=== PATIENT | female | born 1980 | race Caucasian/White ===

== ENCOUNTER → 2016-07-25 | Outpatient (CLI) | payer OTHER ==
[2016-07-25 15:43] LABS: CH 31.6; CHCM 34.1; HDW 2.66; HGB 11.9 gm/dL (11.4-16.0); MCH 31.6 pg (25.0-35.0); Mean Platelet Volume 7.8; RBC 3.77 m/uL (3.80-5.40); RDW 13.1 % (11.5-15.5); WBC 10.6 k/uL (3.8-10.6)
[2016-07-25 15:47] LABS: Glucose 76 mg/dL (74-99); Non-African American GFR(MDRD) >60 (>60 ml/min/1.73 sqM)
[2016-07-25 16:18] LABS: Hepatitis B Surface Ag Index 0.06
[2016-07-26 04:40] LABS: Toxoplasma Antibody (IgG) <3.0 IU/mL (<7.2)
[2016-07-26 07:36] LABS: HIV-1/HIV-2 Ab Screen NONREAC (NON REAC)
== END | disposition home or self-care (01) ==
LOC: LABWHC1 14:36
PROVIDERS: ATTEND Obstetrics & Gynecology
DX: Z34.82 Encounter for supervision of other normal pregnancy, second trimester (principal); Z3A.00 Weeks of gestation of pregnancy not specified
CPT/HCPCS: 36415; 82565; 82947; 85027; 86762; 86777; 86778; 86780; 86850; 86900; 86901; 87340; 87389

== ENCOUNTER 2016-08-16 18:53 | Outpatient (CLI) | payer OTHER ==
[2016-08-16 19:36] LABS: Appearance,Urine Cloudy (Clear); Bacteria,Urine Rare /hpf; Bilirubin,Urine Negative (Negative); Glucose,Urine (UA) Negative (Negative); Ketones,Urine 1+ (Negative); Leukocyte Esterase,Urine Negative (Negative); Mucus,Urine Rare /hpf; Nitrite,Urine Negative (Negative); Particle Count 4667; Protein,Urine Negative (Negative); RBC,Urine <1 /hpf (0-5); Specific Gravity,Urine 1.009 (1.001-1.035); Squamous Epithelial Cell,Urine 5 /hpf (0-4); UA Billing (MACRO vs. MICRO) MICRO; Urobilinogen,Urine <2.0 mg/dL (<2.0); WBC,Urine 1 /hpf (0-5)
== END 2016-08-16 19:50 | disposition home or self-care (01) ==
LOC: FBPOP 18:53
PROVIDERS: ATTEND Obstetrics & Gynecology
DX: O99.89 Other specified diseases and conditions complicating pregnancy, childbirth and the puerperium (principal); M54.9 Dorsalgia, unspecified; Z3A.24 24 weeks gestation of pregnancy
CPT/HCPCS: 81001; G0463; 99213

== ENCOUNTER 2016-11-05 12:14 | Inpatient (IN) | payer OTHER ==
[2016-11-05] MEDS: LACTATED RINGERS 1,000 ML IV SCH ×2 (13:30→23:06)
[2016-11-05] MEDS ORDERED: CITRIC ACID-SODIUM CITRATE 15 ML CUP PO ONE (14:17)
[2016-11-05] MEDS ORDERED: ceFAZolin 2 GM in SODIUM CHLORIDE 0.9% 100 ML IVPB ONE (14:17)
--- NOTE | 2016-11-05 14:21 | P.HPOB ---
History of Present Illness H&P Date: 11/05/16 Chief Complaint: Interim at 35 weeks with nonreactive NST and BPP 2 out of 8 This is a 36-year-old at 35 weeks gestation was seen in the office at approximately 12 clocks afternoon. heart rate was in the low 150s and in discussing with her she relates that she had decreasing movement over the last 2 days. During that time she did not call our office or try and get advice on what to do as she knew she had an appointment today. She also reports that over the last few days she's had a small amount of leaking that she was concerned maybe she had broken her water but again she did not call the office or come into labor and delivery. She was sent over for nonstress test and evaluation for rupture membranes. An Essure was negative however the NST was nonreactive with a baseline of 150 with about 5 deep variation between 1 4153. I was notified of nonreactive NST at approximately 1:15 and at that time ordered a biophysical profile. Biophysical profile was done amniotic fluid index was adequate however there was minimal to no movement in the baby during the entire process. I did do a acoustic stimulation with the ultrasound on the baby and there was some movement of the baby during that but otherwise we do not see any movement. At this point we have called for an urgent section as she has no IV access we are trying to get IV access and it moved forward to getting to the delivery as quickly as possible. Vital signs are stable and afebrile. Heart regular, lungs clear, extremities without pain. Pelvic exam reveals her to be closed. Assessment intrauterine at 35 weeks with nonreactive NST and low biophysical profile. Planned repeat low transverse section Past Medical History History of Any Multi-Drug Resistant Organisms: None Reported Smoking Status: Current every day smoker Medications and Allergies Home Medications Medication Instructions Recorded Confirmed Type Pnv with Ca,No.72/Iron/FA 1 tab PO DAILY 11/05/16 11/05/16 History [ Plus Tablet] Allergies Allergy/AdvReac Type Severity Reaction Status Date / Time No Known Allergies Allergy Verified 11/05/16 12:26 Exam Osteopathic Statement: *. No significant issues noted on an osteopathic structural exam other than those noted in the History and Physical/Consult. - Vital Signs Vital signs: Intake and Output 11/04/16 11/05/16 11/05/16 22:59 06:59 14:59 Other: Weight 79.832 kg Patient Weight 11/06/16 06:59 Weight 79.832 kg
[2016-11-05] MEDS ORDERED: OXYTOCIN 10 UNIT/ML 1 ML VIAL ONE (14:28)
[2016-11-05] MEDS ORDERED: SUCCINYLCHOLINE CHLORIDE 100 MG/5 ML SYR IV ONE (14:28)
[2016-11-05] MEDS ORDERED: ONDANSETRON 4 MG/2 ML VIAL ONE (14:28)
[2016-11-05] MEDS ORDERED: HYDROmorphone (PF) 1 MG/ML ONE (14:28)
[2016-11-05] MEDS ORDERED: ACETAMINOPHEN IV (For NPO) 1,000 MG/100 ML VIAL ONE (14:28)
[2016-11-05] MEDS ORDERED: fentaNYL (PF) 50 MCG/ML 2 ML AMP ONE (14:28)
[2016-11-05] MEDS ORDERED: KETOROLAC 30 MG/ML 1 ML VIAL ONE (14:28)
[2016-11-05] MEDS ORDERED: PROPOFOL 10 MG/ML 20 ML VIAL IV ONE (14:28)
[2016-11-05] MEDS ORDERED: LIDOCAINE 1% INJ 10MG/ML (20 ML MDV) ONE (14:28)
[2016-11-05 14:36] LABS: Basophils % (A) 0 %; CH 31.7; CHCM 33.9; Eosinophils # (A) 0.2 k/uL (0-0.7); Eosinophils % (A) 2 %; HCT 33.3 % (34.0-46.0); HDW 2.92; Luc # (Auto) 0.17; Luc % (Auto) 2; Lymphocytes # (A) 1.7 k/uL (1.0-4.8); Lymphocytes % (A) 15 %; MCH 31.1 pg (25.0-35.0); MCV 94.2 fL (80.0-100.0); Mean Platelet Volume 9.7; Monocytes # (A) 0.6 k/uL (0-1.0); Monocytes % (A) 5 %; Neutrophils # (A) 8.8 k/uL (1.3-7.7); Neutrophils % (A) 76 %; RBC 3.53 m/uL (3.80-5.40); RDW 13.4 % (11.5-15.5); WBC 11.5 k/uL (3.8-10.6); WBC (Perox) 11.83
--- NOTE | 2016-11-05 14:56 | US ---
EXAMINATION TYPE: US OB BPP wo non-stress DATE OF EXAM: 11/05/2016 2:09 PM COMPARISON: NONE CLINICAL HISTORY: non reactive heart tones. EXAM PERFORMED: Biophysical profile by ultrasound BPP PARAMETERS: PRESENTATION: vertex LIE: Long?? HEART RATE: 147bpm RHYTHM: Normal JUSTYN: 16.5 BPP SCORIN. Breathin (1 episode of breathing of 30 second duration in 30 minutes of scanning time) 2. Movement: 0 (at least 2 discrete body movements in 30 minutes) 3. Tone: 0 (1 episode of active flexion/extension of limb) 4. JUSTYN: 16.5 (JUSTYN index > 5cm) TOTAL SCORE: 2 / 8 Dr Desai present during beginning of exam, and came in at end. He said we could stop the scan and t hat he was going to deliver the baby. IMPRESSIONS: 1. Biophysical profile scoring 2 out of 8 points.
--- NOTE | 2016-11-05 15:25 | P.OP ---
Date of Procedure: 11/05/16 Preoperative Diagnosis: IUP 35 weeks nonreactive NST with biophysical profile 2 out of 8 with family planning Postoperative Diagnosis: Same Procedure(s) Performed: Repeat low transverse section with bilateral partial salpingectomy Implants: Anesthesia: JEFFRYA Surgeon: Boom Desai Head And Neck Surgeon #1: Raysa Norris Estimated Blood Loss (ml): 800 IV fluids (ml): 900 Urine output (ml): 100 Pathology: other (Placenta) Condition: stable Disposition: floor Indications for Procedure: Operative Findings: Viable male scores of 7 at 1-5 and 8 at 10 minutes with a weight of 6 pounds Description of Procedure: Patient was taken to the operating suite and placed under a general anesthetic due to above factors. A Pfannenstiel skin incision was made and this incision was then carried through to the underlying layer of the fascia was second knife. Fascia was then nicked in the midline and this opening was extended laterally with Israel scissors. Superior and inferior aspect of this incision were then grasped tented up and bluntly and sharply dissected off the rectus muscles. Rectus muscles were then divided in the midline and sharp dissection through the peritoneum was made. This opening was then extended superiorly and inferiorly with good visualization of both bowel bladder. Bladder blade was then placed and vesicouterine peritoneum was identified. It was entered sharply with Metzenbaum scissors and this opening was extended across the face of the uterus and bladder flap was digitally created. Knife was then used to incise uterus and this incision was then extended bluntly. Clear fluid is noted time of artificial rupture membranes. Head was then H medically delivered and mouth nares bulb suctioned. Interim posterior shoulders were easily delivered with gentle downward upper traction with fundal pressure. Umbilical cord was allowed to pulsate some blood back towards the baby as nursery personnel was giving initial care and the umbilical cord was rapidly clamped and cut and the baby was taken to special care nursery. Placenta was then delivered intact Pitocin was added to the IV. Uterus was then exteriorized cleared of clots and debris and closed with one layer of 0 Vicryl suture. Once excellent hemostasis was felt to be obtained 3-0 Vicryl was used to reapproximate the bladder flap. Once accomplished first the right tube than left tube had a hemostat placed 2-3 cm from uterine cornu and a window was created in the mesosalpinx bilaterally. 2 proximal to distal 2-0 silk sutures were then placed and intervening segments excised and tips were cauterized. Once accomplished blood and debris was suctioned from the posterior cul-de-sac. Uterus was then reinserted into the abdomen and peritoneal layer was closed with 0 Vicryl suture. Fascial layer was closed with 0 Vicryl suture. 3-0 Vicryl was then used to reapproximate skin and close space and the skin was then closed with 3-0 Vicryl and a Torres needle. Should be noted that we did discuss tubal ligation versus non-tubal ligation. Discussion was that if the baby seemed to be okay at time of delivery that we would go in and do a tubal ligation if the baby was flaccid or potentially looked critical to the special care nursery personnel would plan not to tie her tubes. 1 minute score for baby was 7 and the baby was taken special care nursery were the remaining scores were obtained.
[2016-11-05] MEDS ORDERED: HYDROmorphone PCA 5 MG/25 ML SYRINGE IV PRN (15:31)
[2016-11-05] MEDS ORDERED: NALOXONE 0.4 MG/ML 1 ML VIAL IV PRN (15:31)
[2016-11-05] MEDS: ONDANSETRON 4 MG/2 ML VIAL IVP PRN ×2 (16:37→22:15)
[2016-11-05 17:13] VITALS: BMI 25.9
[2016-11-05] MEDS: KETOROLAC 30 MG/ML 1 ML VIAL IVP SCH (22:15)
[2016-11-06] MEDS: KETOROLAC 30 MG/ML 1 ML VIAL IVP SCH ×3 (04:49→20:46)
[2016-11-06] MEDS ORDERED: Acetaminophen-Codeine 300-30mg TAB PO PRN (08:54)
--- NOTE | 2016-11-06 08:56 | P.PNOBGPC ---
Subjective - Subjective Principal diagnosis: pod 1 Interval history: overall doing well. v/s stable and afebrile. all questions answered. will plan d /c [employer]. advance diet. heart reg, lung ctab, abd soft, inc intact. ext without pain. pod #1 cont care Patient reports: Reports appetite normal, Reports voiding normally, Reports pain well controlled, Reports ambulating normally [place]: in NICU Objective - Vital Signs Latest vital signs: Vital Signs Temp Pulse Resp BP Pulse Ox 11/06/16 04:00 98.3 F 61 16 108/66 100 11/05/16 23:26 97.6 F 55 L 16 113/68 100 11/05/16 20:00 95.4 F L 56 L 16 115/55 100 11/05/16 17:14 61 16 107/60 11/05/16 16:44 66 16 118/62 99 11/05/16 16:14 57 L 16 124/60 99 11/05/16 16:00 61 16 121/67 99 11/05/16 15:59 61 16 126/63 99 11/05/16 15:44 65 16 127/60 99 11/05/16 15:31 99 11/05/16 15:29 97.3 F L 74 16 126/60 99 11/05/16 15:14 97.2 F L 74 16 126/60 100 Intake and Output 11/05/16 11/06/16 11/06/16 22:59 06:59 14:59 Output Total 650 800 Balance -650 -800 Output: Urine 650 800 Uretheral ([place]) 200 Other: Voiding Method Indwelling Catheter # Voids 1 Weight 79.832 kg - Labs Labs: Abnormal Lab Results - Last 24 Hours (Table) 11/05/16 11/05/16 Range/Units 14:15 14:41 WBC 11.5 H (3.8-10.6) k/uL RBC 3.53 L (3.80-5.40) m/uL Hgb 11.0 L (11.4-16.0) gm/dL Hct 33.3 L (34.0-46.0) % Neutrophils # 8.8 H (1.3-7.7) k/uL Urine Opiates Screen Detected H (NotDetected) U Marijuana (THC) Screen Detected H (NotDetected)
[2016-11-06] MEDS: Acetaminophen-Codeine 300-30mg TAB PO PRN ×2 (09:19→19:42)
[2016-11-06] MEDS ORDERED: MEASLES-MUMPS-RUBELLA VACC/PF 12,500 UNIT/0.5 ML VIAL SQ ONE (16:57)
[2016-11-06] MEDS ORDERED: DIPH,PERTUS(ACELL)TETVAC-LF 0.5 ML VIAL IM ONE (16:57)
[2016-11-06] MEDS: IBUPROFEN 600 MG TAB PO PRN ×2 (17:49→23:27)
[2016-11-06] MEDS: SENNOSIDES-DOCUSATE SODIUM 1 EACH TAB PO SCH (19:43)
[2016-11-06] MEDS: LACTATED RINGERS 1,000 ML IV SCH ×7 (20:40→20:46)
[2016-11-07] MEDS: Acetaminophen-Codeine 300-30mg TAB PO PRN (05:58)
[2016-11-07] MEDS: IBUPROFEN 600 MG TAB PO PRN ×3 (08:51→20:32)
[2016-11-07] MEDS: SENNOSIDES-DOCUSATE SODIUM 1 EACH TAB PO SCH ×2 (08:52→20:33)
--- NOTE | 2016-11-07 17:16 | P.PNOBGPC ---
Subjective - Subjective Principal diagnosis: Postop day 2 Interval history: Patient is doing very well postop day 2. She is involuting, voiding, and she is tolerating her diet. She is passing flatus. Vital signs are stable afebrile. Heart regular, lungs clear, extremities without pain. Abdomen is soft bowel sounds are noted in the incision is clean dry and intact. Assessment postop day 2. Plan continue current care. Patient reports: Reports appetite normal, Reports voiding normally, Reports pain well controlled, Reports ambulating normally Objective - Vital Signs Latest vital signs: Vital Signs Temp Pulse Resp BP Pulse Ox 11/07/16 16:00 98.2 F 78 18 116/71 11/07/16 08:54 98.2 F 77 14 100/62 11/06/16 23:50 98.5 F 72 16 102/66 99 11/06/16 17:30 97.9 F 60 18 105/50 100
[2016-11-08] MEDS: IBUPROFEN 600 MG TAB PO PRN ×2 (00:21→11:07)
--- NOTE | 2016-11-08 08:04 | P.PNOBGPC ---
Subjective - Subjective Principal diagnosis: Postoperative day 3 Interval history: Overall doing very well baby is still in special care nursery however. We'll plan discharged home tomorrow Patient reports: Reports appetite normal, Reports voiding normally, Reports pain well controlled, Reports ambulating normally [place]: doing well, in NICU Objective - Vital Signs Latest vital signs: Vital Signs Temp Pulse Resp BP 11/07/16 23:00 98.0 F 76 16 109/59 11/07/16 16:00 98.2 F 78 18 116/71 11/07/16 08:54 98.2 F 77 14 100/62 - Exam Lungs: bilateral: normal Chest: Normal S1, Normal S2 Extremities: Present: normal Abdomen: Present: normal appearance, soft. Absent: distention, tenderness Incision: Present: normal, dry, intact Uterus: Present: normal, firm
[2016-11-08 09:28] VITALS: RESP 20
[2016-11-08 09:30] VITALS: BP 108/67; PULSE 57; TEMP 98.1
[2016-11-08] MEDS: SENNOSIDES-DOCUSATE SODIUM 1 EACH TAB PO SCH (09:44)
--- NOTE | 2016-12-01 08:06 | P.DS ---
Providers Date of admission: 11/05/16 14:04 Expected date of discharge: 12/01/16 Attending physician: Boom Desai Primary care physician: Stated None Hospital Course: Patient was discharged home postop day [address] Mariscal. She was seen earlier in the day by myself. There were no changes prior to discharge. She was angling and voiding and she was tolerating her diet. Her incision is clean dry and intact at the time of discharge and she was to follow-up with me in 1 week. Prescriptions for pain medication were provided and all the questions were answered for her prior to her discharge. Discharge instructions thoroughly reviewed by myself earlier in the day. Assessment postop day 3. Plan she was discharged to home in stable and satisfactory condition. Patient Condition at Discharge: Good Plan - Discharge Summary New Discharge Prescriptions: New Acetaminophen-Codeine 300-30mg [Tylenol #3] 1 tab PO Q4H PRN #30 tablet PRN Reason: Pain Ibuprofen [Motrin] 600 mg PO Q6HR PRN #30 tab PRN Reason: Pain No Action Pnv,Calcium 72/Iron/Folic Acid [ Plus Tablet] 1 tab PO DAILY Discharge Medication List Pnv,Calcium 72/Iron/Folic Acid [ Plus Tablet] 1 tab PO DAILY 11/05/16 [ History] Acetaminophen-Codeine 300-30mg [Tylenol #3] 1 tab PO Q4H PRN #30 tablet [Rx] Ibuprofen [Motrin] 600 mg PO Q6HR PRN #30 tab 11/08/16 [Rx] Follow up Appointment(s)/Referral(s): Boom Desai DO [Doctor of Osteopathic Medicine] - 1 Week Activity/Diet/Wound Care/Special Instructions: No heavy lifting, limit stairs and driving and pelvic rest. If any high temperatures, heavy bleeding, or severe pain call my office Discharge Disposition: HOME SELF-CARE
== END 2016-11-08 14:20 | disposition home or self-care (01) | DRG 766 ==
LOC: FBPOP 12:14 → 4FBP 14:04
PROVIDERS: ADMIT Obstetrics & Gynecology; ATTEND Obstetrics & Gynecology
PROC: 10D00Z1 Extraction of Products of Conception, Low, Open Approach (ICD-10-PCS; principal; 2016-11-05 14:30)
PROC: 0UB70ZZ Excision of Bilateral Fallopian Tubes, Open Approach (ICD-10-PCS; principal; 2016-11-05 14:30)
DX: O76 Abnormality in fetal heart rate and rhythm complicating labor and delivery (principal); F17.200 Nicotine dependence, unspecified, uncomplicated; Z37.0 Single live birth; O34.211 Maternal care for low transverse scar from previous cesarean delivery; O99.334 Smoking (tobacco) complicating childbirth; O36.8130 Decreased fetal movements, third trimester, not applicable or unspecified; Z3A.35 35 weeks gestation of pregnancy
CPT/HCPCS: 59025; 76819; 80306; 84112; 85025; 86850; 86900; 86901; 88302; 88307; 90471; 90472; 90707; 90715